=== PATIENT | male | born 2000 | race Caucasian/White ===

== ENCOUNTER 2023-05-21 14:38 | Emergency (ER) | payer BC ==
[2023-05-21 15:04] VITALS: TEMP 98.4; O2SAT 100
[2023-05-21 15:19] LABS: Absolute Neutrophil Ct (ANC) 3.24 x10^3/uL (1.4-6.9); BASOPHIL % 0.8 % (0.0-0.4); Basophil (Absolute #) 0.05 x10^3/uL (0-0.4); Eosinophil (Absolute #) 0.12 x10^3/uL (0-0.5); Hematocrit 46.2 % (42-50); Hemoglobin 15.4 g/dL (12.5-18.0); IMMATURE GRAN # 0.02 x10^3u/L (0.00-0.03); IMMATURE GRAN % 0.3 % (0.00-0.4); Lymphocyte (Absolute #) 2.14 x10^3/uL (1.0-4.6); Mean Corpuscular Hgb Concent. 33.3 g/dL (32-36); Mean Platelet Volume 10.5 fL (7.5-11.0); Monocyte (Absolute #) 0.54 x10^3/uL (0.0-1.3); Monocytes % 8.8 % (0.0-12.0); Neutrophil % 53.1 % (36.0-66.0); Platelet Count 268 x10^3/uL (150-450); Red Blood Count 5.31 x10^6/uL (4.1-5.6); Red Cell Distribution Width 12.3 % (11.5-14.0); White Blood Count 6.1 x10^3/uL (4.0-10.5)
[2023-05-21 15:34] LABS: ALBUMIN 4.6 g/dL (3.5-5.0); ALKALINE PHOSPHATASE 52 U/L (38-126); ANION GAP 13.7 MEQ/L (5-15); BLOOD UREA NITROGEN 14 mg/dL (9-20); CHLORIDE 104 mmol/L (98-107); Calcium 9.9 mg/dL (8.4-10.2); Carbon Dioxide 26 mmol/L (22-30); EST GLOMERULAR FILTRATION RATE > 60.0 ML/MIN; Glucose 116 mg/dL (74-106); MAGNESIUM 1.9 mg/dL (1.6-2.3); Potassium 4.2 mmol/L (3.5-5.1); SGOT/AST 37 U/L (17-59); SGPT/ALT 27 U/L (0-50); SODIUM 139 mmol/L (137-145); Total Protein 7.5 g/dL (6.3-8.2)
[2023-05-21 15:36] LABS: D-DIMER QUANTITATIVE < 0.19 mg/L (0.0-0.50); INR 0.94 (0.8-3.0); PROTIME 10.3 SECONDS (9.4-12.5); PTT 28.4 SECONDS (25.1-36.5)
--- NOTE | 2023-05-21 15:54 | ERPHSYRPT ---
- History of Present Illness Historian: patient, other (SO) Patient Subjective Stated Complaint: pt reports chest pain for approx 1.5 months now, states his s/s got worse today. he states that he feels a lot of chest pressure and sometimes he is short of breath. pt also reports unexplained weight gain and increased sweating. pt states sometimes when he wakes up in the morning he coughs up a lot of phlegm. pt reports history of pericarditis. Triage Nursing Assessment: pt is aox3, pt appears anxious, pupils perrl, afebrile, resps easy and non labored, cap refill < 3 seconds, pt radial pulses s evelyn and equal, pt is tachycardic, pt skin pink warm dry. no edema appreciated. Physician History: 22 yo WM w L alteral chest pain x 6wks. pain is 0/10 at present but has been up to a 7/10. it does not radiate, and nothing makes it better or worse. He denies N/V/diaphoresis but states that eh has been a little dyspneic. DM/HTN/smoking/hyperlipidemia are all denied. He had a h/o myocarditis in 2019. Timing/Duration: other (6 wks) Activities at Onset: rest Quality: aching, sharpness Location: other (L chest) Chest Pain Radiation: no radiation Severity of Pain-Max: moderate Severity of Pain-Current: none Modifying Factors: Improves With: nothing Associated Symptoms: denies symptoms, shortness of breath Nitro Today/Relief: no nitro taken today Aspirin Treatment Today: no aspirin today Hx Tetanus, Diphtheria Vaccination/Date Given: (UNK) Hx Influenza Vaccination/Date Given: No Hx Pneumococcal Vaccination/Date Given: No Immunizations Up to Date: Yes Travel Risk - International Travel Have you traveled outside of the country in past 3 weeks: No - Coronavirus Screening Are you exhibiting any of the following symptoms?: No Close contact with a COVID-19 positive Pt in past 14-21 Days: No - Vaccine Status Have you recieved a Covid-19 vaccination: No - Review of Systems Constitutional: No Symptoms Eyes: No Symptoms Ears, Nose, & Throat: No Symptoms Respiratory: No Symptoms Cardiac: Chest Pain Abdominal/Gastrointestinal: No Symptoms Genitourinary Symptoms: No Symptoms Musculoskeletal: No Symptoms Skin: No Symptoms Neurological: No Symptoms Psychological: No Symptoms Endocrine: No Symptoms Hematologic/Lymphatic: No Symptoms Immunological/Allergic: No Symptoms - Past Medical History Pertinent Past Medical History: Yes Other Medical History: TONYA/PERICARDITIS 2020 - Past Surgical History Past Surgical History: No - Social History Smoking Status: Never smoker Drug Use: none Patient Lives Alone: No - Nursing Vital Signs Nursing Vital Signs: Initial Vital Signs Temperature 98.4 F 05/21/23 14:40 Pulse Rate 114 H 05/21/23 14:40 Respiratory Rate 20 05/21/23 14:40 Blood Pressure 128/109 05/21/23 14:40 O2 Sat by Pulse Oximetry 100 05/21/23 14:40 Pain Scale Pain Intensity 0 Tachy/hypertensive - Physical Exam General Appearance: no apparent distress, anxiety Eye Exam: PERRL/EOMI, eyes nml inspection Ears, Nose, Throat Exam: normal ENT inspection, TMs normal, pharynx normal, moist mucous membranes Neck Exam: normal inspection, non-tender, supple, full range of motion, No meningismus, No mass, No Brudzinski, No Kernig's, No carotid bruit Respiratory Exam: normal breath sounds, lungs clear, airway intact, No chest tenderness, No respiratory distress Cardiovascular Exam: normal heart sounds, tachycardia, capillary refill <2 sec, No murmur Gastrointestinal/Abdomen Exam: soft, normal bowel sounds, No tenderness Back Exam: normal inspection, normal range of motion, No CVA tenderness, No vertebral tenderness Extremity Exam: normal inspection, normal range of motion, pelvis stable Neurologic Exam: alert, oriented x 3, cooperative, 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, normal mood/affect, nml cerebellar function, nml station & gait, sensation nml, No motor deficits, No sensory deficit Skin Exam: normal color, warm, dry, No rash Lymphatic Exam: No adenopathy SpO2 Interpretation: normal SpO2: 100 O2 Delivery: Room Air - Course EKG Interpreted by Me: RATE (Sinus tach/Rate 111/Normal QT-QTc/Non-specific ST changes) - Radiology Exams Chest X-ray Interpretation: Interpreted by me (NAD) Ordered Tests: Active Orders 24 hr Category Date Time Status Museum Docent STAT Care 05/21/23 14:56 Completed EKG-ER Only STAT Care 05/21/23 14:54 Completed IV Insertion STAT Care 05/21/23 14:56 Completed CHEST 1 VIEW (PORTABLE) Stat Exams 05/21/23 14:54 Taken CBC W DIFF Stat Lab 05/21/23 15:00 Completed CMP Stat Lab 05/21/23 15:00 Completed D-DIMER QUANTITATIVE Stat Lab 05/21/23 15:00 Completed MAGNESIUM Stat Lab 05/21/23 15:00 Completed PROTIME WITH INR Stat Lab 05/21/23 15:00 Completed PTT Stat Lab 05/21/23 15:00 Completed TROPONIN Q4H Lab 05/21/23 15:00 Completed Lab/Rad Data: Laboratory Result Diagrams 05/21/23 15:00 05/21/23 15:00 Laboratory Results 05/21/23 05/21/23 05/21/23 Range/Units 15:00 15:00 15:00 WBC (4.0-10.5) x10^3/uL RBC (4.1-5.6) x10^6/uL Hgb (12.5-18.0) g/dL Hct (42-50) % MCV (78-100) fL MCH (26-32) pg MCHC (32-36) g/dL RDW (11.5-14.0) % Plt Count (150-450) x10^3/uL MPV (7.5-11.0) fL Gran % (36.0-66.0) % Immature Gran % (Auto) (0.00-0.4) % Nucleat RBC Rel Count (0.00-0.1) % Eos # (Auto) (0-0.5) x10^3/uL Immature Gran # (Auto) (0.00-0.03) x10^3u/L Absolute Lymphs (auto) (1.0-4.6) x10^3/uL Absolute Monos (auto) (0.0-1.3) x10^3/uL Absolute Nucleated RBC (0.00-0.01) x10^3u/L Lymphocytes % (24.0-44.0) % Monocytes % (0.0-12.0) % Eosinophils % (0.00-5.0) % Basophils % (0.0-0.4) % Absolute Granulocytes (1.4-6.9) x10^3/uL Basophils # (0-0.4) x10^3/uL PT 10.3 (9.4-12.5) SECONDS INR 0.94 (0.8-3.0) APTT 28.4 (25.1-36.5) SECONDS D-Dimer < 0.19 (0.0-0.50) mg/L Sodium 139 (137-145) mmol/L Potassium 4.2 (3.5-5.1) mmol/L Chloride 104 (98-107) mmol/L Carbon Dioxide 26 (22-30) mmol/L Anion Gap 13.7 (5-15) MEQ/L BUN 14 (9-20) mg/dL Creatinine 0.70 (0.66-1.25) mg/dL Estimated GFR > 60.0 ML/MIN Glucose 116 H (74-106) mg/dL Calcium 9.9 (8.4-10.2) mg/dL Magnesium 1.9 (1.6-2.3) mg/dL Total Bilirubin 1.00 (0.2-1.3) mg/dL AST 37 (17-59) U/L ALT 27 (0-50) U/L Alkaline Phosphatase 52 (38-126) U/L Troponin I < 0.012 (0.000-0.034) ng/mL Serum Total Protein 7.5 (6.3-8.2) g/dL Albumin 4.6 (3.5-5.0) g/dL 05/21/23 Range/Units 15:00 WBC 6.1 (4.0-10.5) x10^3/uL RBC 5.31 (4.1-5.6) x10^6/uL Hgb 15.4 (12.5-18.0) g/dL Hct 46.2 (42-50) % MCV 87.0 (78-100) fL MCH 29.0 (26-32) pg MCHC 33.3 (32-36) g/dL RDW 12.3 (11.5-14.0) % Plt Count 268 (150-450) x10^3/uL MPV 10.5 (7.5-11.0) fL Gran % 53.1 (36.0-66.0) % Immature Gran % (Auto) 0.3 (0.00-0.4) % Nucleat RBC Rel Count 0.0 (0.00-0.1) % Eos # (Auto) 0.12 (0-0.5) x10^3/uL Immature Gran # (Auto) 0.02 (0.00-0.03) x10^3u/L Absolute Lymphs (auto) 2.14 (1.0-4.6) x10^3/uL Absolute Monos (auto) 0.54 (0.0-1.3) x10^3/uL Absolute Nucleated RBC 0.00 (0.00-0.01) x10^3u/L Lymphocytes % 35.0 (24.0-44.0) % Monocytes % 8.8 (0.0-12.0) % Eosinophils % 2.0 (0.00-5.0) % Basophils % 0.8 (0.0-0.4) % Absolute Granulocytes 3.24 (1.4-6.9) x10^3/uL Basophils # 0.05 (0-0.4) x10^3/uL PT (9.4-12.5) SECONDS INR (0.8-3.0) APTT (25.1-36.5) SECONDS D-Dimer (0.0-0.50) mg/L Sodium (137-145) mmol/L Potassium (3.5-5.1) mmol/L Chloride (98-107) mmol/L Carbon Dioxide (22-30) mmol/L Anion Gap (5-15) MEQ/L BUN (9-20) mg/dL Creatinine (0.66-1.25) mg/dL Estimated GFR ML/MIN Glucose (74-106) mg/dL Calcium (8.4-10.2) mg/dL Magnesium (1.6-2.3) mg/dL Total Bilirubin (0.2-1.3) mg/dL AST (17-59) U/L ALT (0-50) U/L Alkaline Phosphatase (38-126) U/L Troponin I (0.000-0.034) ng/mL Serum Total Protein (6.3-8.2) g/dL Albumin (3.5-5.0) g/dL - Progress Progress Note: 05/21/23 16:07 Nursing note and vital signs reviewed No food or housing insecurities noted Additional history per SO All lab results reviewed and shared w pt/SO CXR read in ER and result shared w pt/SO Heart Score 1 DD negative Pt wo any chest pain while in ER Counseled pt/family regarding: lab results, diagnosis, need for follow-up, rad results Medical Desision Making - Independent Historian Additional History obtained from: Spouse - Diagnostic Testing Diagnostic test were ordered, analyzed, and reviewed by me: Yes Radiological Interpretation: Interpreted by me - Risk of complications Low Risk: Low risk of morbidity from additional dx testing or treatment - Departure Departure Disposition: Home Clinical Impression: Chest pain Condition: Stable Critical Care Time: No Referrals: SANAM MOORE NP [Primary Care Provider] - Follow up/PCP as directed Instructions: Chest Pain (DC) Additional Instructions: Follow up with your family MD Return to ER for worsening pain or temperature greater than 100.5
[2023-05-21 16:27] VITALS: BP 128/98; PULSE 92; RESP 16
--- NOTE | 2023-05-21 20:54 | XRAY ---
Indication: Short of breath and chest pain. Comparison: None Portable apical lordotic chest demonstrates normal heart, lungs, and bony thorax.
== END 2023-05-21 16:25 | disposition home or self-care (01) ==
LOC: ED 14:38
DX: R07.9 Chest pain, unspecified (principal); Z28.310 Unvaccinated for COVID-19
CPT/HCPCS: 36000; 36415; 71045; 80053; 83735; 84484; 85025; 85379; 85610; 85730; 93005; 93041; 99284

== ENCOUNTER 2025-07-19 08:35 | Emergency (ER) | payer BC ==
[2025-07-19 08:51] VITALS: TEMP 97.8; O2SAT 97
--- NOTE | 2025-07-19 08:55 | ERPHSYRPT ---
- History of Present Illness Time Seen by Provider: 07/19/25 08:50 Historian: patient Exam Limitations: no limitations Patient Subjective Stated Complaint: patient came into ED had LAbs ran and covid and flu swab and was all negative Triage Nursing Assessment: patient had scope done 06/05 and left hip labrum muscle repaired, hes been on antibiotic sincef shortly after that, but he is still having horrible pains in his back and flank. patietn is alert and orientedx4, able to ambualte by self, skin warm dry and intact. incision area clean dry and healing. patient says this week he's been having some nausea as well. 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 He did have an infected postoperative incision midportion. The wound has been undergoing packing. Patient is no longer on antibiotics. In the last 3 to 4 days he has had nausea and intermittent fevers. The fevers reached as high as 102 F. In the last 2 days he is having bilateral flank pain and feels sweaty although he has not measured fever. Patient underwent viral swabs 2 to 3 days ago and they were negative per his report. He has not vomited. He has not had diarrhea. The patient did complete a course of Bactrim DS antibiotic. Timing/Duration: day(s) (4), worse Quality: sharpness, stabbing Severity of Pain-Max: moderate Severity of Pain-Current: moderate Modifying Factors: Improves With: nothing Associated Symptoms: diaphoresis, fever/chills, nausea Previous symptoms: recently seen Allergies/Adverse Reactions: No Known Drug Allergies Allergy (Verified 07/19/25 08:42) Home Medications: No Reportable Medications [No Reported Medications] 07/19/25 [History] Hx Tetanus, Diphtheria Vaccination/Date Given: Yes Hx Influenza Vaccination/Date Given: No Hx Pneumococcal Vaccination/Date Given: No Immunizations Up to Date: Yes Travel Risk - International Travel Have you traveled outside of the country in past 3 weeks: No - Emerging Infectious Disease Are you exhibiting symptoms associated with any current EIDs: No - Review of Systems Constitutional: No Symptoms Eyes: No Symptoms Ears, Nose, & Throat: No Symptoms Respiratory: No Symptoms Cardiac: No Symptoms Abdominal/Gastrointestinal: Nausea, No Abdominal Pain Genitourinary Symptoms: Flank Pain Musculoskeletal: Other (Status post left hip labial repair with midportion wound opened with packing) Skin: Other (See above musculoskeletal section. No obvious external wound drainage or malodor) Neurological: No Symptoms Psychological: No Symptoms Endocrine: No Symptoms Hematologic/Lymphatic: No Symptoms Immunological/Allergic: No Symptoms All Other Systems: Reviewed and Negative - Past Medical History Pertinent Past Medical History: Yes Neurological History: No Pertinent History ENT History: No Pertinent History Cardiac History: No Pertinent History Respiratory History: No Pertinent History Endocrine Medical History: No Pertinent History Musculoskeletal History: No Pertinent History GI Medical History: No Pertinent History History: No Pertinent History Psycho-Social History: No Pertinent History Male Reproductive Disorders: No Pertinent History 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 - Past Surgical History Past Surgical History: Yes Musculoskeletal: Orthopedic Surgery, Other - Social History Smoking Status: Never smoker Exposure to second hand smoke: No Drug Use: none - Social Determinants of Health Will the patient participate in the screening: Yes Do you worry about a steady place to live?: No Do you have any problems with any of the following?: No known problems In the past 12 months,have you had to go without utilities?: No Transportation Issues: No Has anyone in your support network made you feel unsafe?: No Have you or anyone in your house had to go w/o enough food: No - Nursing Vital Signs Nursing Vital Signs: Initial Vital Signs Temperature 97.7 F 07/19/25 08:35 Pulse Rate 92 H 07/19/25 08:35 Respiratory Rate 20 07/19/25 08:35 Blood Pressure 127/91 07/19/25 08:35 O2 Sat by Pulse Oximetry 99 07/19/25 08:35 Pain Scale Pain Intensity 6 - Physical Exam General Appearance: no apparent distress, alert, anxiety Eye Exam: PERRL/EOMI Ears, Nose, Throat Exam: normal ENT inspection, moist mucous membranes Neck Exam: normal inspection, non-tender, supple, full range of motion Respiratory Exam: airway intact, No chest tenderness, No respiratory distress Gastrointestinal/Abdomen Exam: soft, normal bowel sounds, tenderness Rectal Exam: not done Extremity Exam: other (Status post left hip labial repair with axially oriented postoperative decision. Midportion wound open with packing present. 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, nml cerebellar function, nml station & gait, sensation nml Skin Exam: normal color, warm, dry Lymphatic Exam: No adenopathy SpO2 Interpretation: normal SpO2: 97 O2 Delivery: Room Air - Course Nursing assessment & vital signs reviewed: Yes Ordered Tests: Active Orders 24 hr Category Date Time Status IV Insertion STAT Care 07/19/25 08:58 Active ABDOMEN AND PELVIS W/0 CONTRAS [CT] Stat Exams 07/19/25 08:58 Completed LOWER EXTREMITY WO CONTRAST [CT] Stat Exams 07/19/25 09:00 Completed BLOOD CULTURE Stat Lab 07/19/25 09:52 Received CBC W DIFF Stat Lab 07/19/25 08:58 Completed CMP Stat Lab 07/19/25 08:58 Completed LIPASE Stat Lab 07/19/25 08:58 Completed Lactic Acid Stat Lab 07/19/25 09:23 Completed MONO SCREEN Stat Lab 07/19/25 08:58 Completed PROCALCITONIN Stat Lab 07/19/25 09:20 Completed UA W/RFX UR CULTURE Stat Lab 07/19/25 08:58 Completed Medication Summary Discontinued Medications Generic Name Dose Route Start Last Admin Trade Name Freq PRN Reason Stop Dose Admin Sodium Chloride 1,000 mls @ 999 mls/hr 07/19/25 08:58 07/19/25 10:15 Sodium Chloride 0.9% 1000 Ml IV 07/19/25 09:58 Infused .Q1H1M STA Infusion Sodium Chloride Confirm 07/19/25 09:15 Sodium Chloride 0.9% 1000 Ml Administered 07/19/25 09:16 Dose 1,000 mls @ ud .ROUTE .STK-MED ONE Ondansetron HCl 4 mg 07/19/25 08:58 07/19/25 09:16 Ondansetron Hcl 4 Mg/2 Ml Vial IV 07/19/25 08:59 4 mg STAT ONE Administration Ondansetron HCl Confirm 07/19/25 09:15 Ondansetron Hcl 4 Mg/2 Ml Vial Administered 07/19/25 09:16 Dose 4 mg .ROUTE .STK-MED ONE Lab/Rad Data: Laboratory Result Diagrams 07/19/25 08:58 07/19/25 08:58 Laboratory Results 07/19/25 07/19/25 07/19/25 Range/Units 09:23 09:20 08:58 WBC (4.23-9.07) x10^3/uL RBC (4.63-6.08) x10^6/uL Hgb (13.7-17.5) g/dL Hct (40.1-51.0) % MCV (79.0-92.2) fL MCH (25.7-32.2) pg MCHC (32.3-36.5) g/dL RDW (11.6-14.4) % Plt Count (163-337) x10^3/uL MPV (9.4-12.4) fL Gran % (34.0-67.9) % Immature Gran % (Auto) (0.001-0.429) % Nucleat RBC Rel Count (0.00-0.2) % Eos # (Auto) (0.04-0.54) x10^3/uL Immature Gran # (Auto) (0.001-0.031) x10^3u/L Absolute Lymphs (auto) (1.32-3.57) x10^3/uL Absolute Monos (auto) (0.30-0.82) x10^3/uL Absolute Nucleated RBC (0.00-0.012) x10^3u/L Lymphocytes % (21.8-53.1) % Monocytes % (5.3-12.2) % Eosinophils % (0.8-7.0) % Basophils % (0.2-1.2) % Absolute Granulocytes (1.78-5.38) x10^3/uL Basophils # (0.01-0.08) x10^3/uL Sodium (135-145) mmol/L Potassium (3.5-5.1) mmol/L Chloride (98-107) mmol/L Carbon Dioxide (22-30) mmol/L Anion Gap (5-15) MEQ/L BUN (9-20) mg/dL Creatinine (0.66-1.25) mg/dL Estimated GFR ML/MIN Glucose (74-106) mg/dL Lactic Acid 1.0 (0.4-2.0) Calcium (8.4-10.2) mg/dL Total Bilirubin (0.2-1.3) mg/dL AST (17-59) U/L ALT (0-50) U/L Alkaline Phosphatase (38-126) U/L Serum Total Protein (6.3-8.2) g/dL Albumin (3.5-5.0) g/dL Lipase (23-300) U/L Procalcitonin 0.498 H (0.030-0.080) ng/mL Urine Color (Yellow) Urine Appearance (Clear) Urine pH (4.6-8.0) Ur Specific [place] (1.005-1.030) Urine Protein (Negative) Urine Glucose (UA) (Negative) mg/dL Urine Ketones (Negative) Urine Blood (Negative) Urine Nitrite (Negative) Urine Bilirubin (Negative) Urine Urobilinogen (0.2) mg/dL Ur Leukocyte Esterase (Negative) U Hyaline Cast (Auto) (0-2) /LPF Urine Microscopic RBC (0-5) /HPF Urine Microscopic WBC (0-5) /HPF Ur Epithelial Cells (None Seen) /HPF Urine Bacteria (None Seen) /HPF Urine Culture Reflexed (NO) Monoscreen NEGATIVE (NEGATIVE) 07/19/25 07/19/25 07/19/25 Range/Units 08:58 08:58 08:58 WBC 3.8 L (4.23-9.07) x10^3/uL RBC 4.96 (4.63-6.08) x10^6/uL Hgb 14.4 (13.7-17.5) g/dL Hct 42.8 (40.1-51.0) % MCV 86.3 (79.0-92.2) fL MCH 29.0 (25.7-32.2) pg MCHC 33.6 (32.3-36.5) g/dL RDW 12.3 (11.6-14.4) % Plt Count 237 (163-337) x10^3/uL MPV 9.6 (9.4-12.4) fL Gran % 55.6 (34.0-67.9) % Immature Gran % (Auto) 0.5 H (0.001-0.429) % Nucleat RBC Rel Count 0.0 (0.00-0.2) % Eos # (Auto) 0.27 (0.04-0.54) x10^3/uL Immature Gran # (Auto) 0.02 (0.001-0.031) x10^3u/L Absolute Lymphs (auto) 0.81 L (1.32-3.57) x10^3/uL Absolute Monos (auto) 0.53 (0.30-0.82) x10^3/uL Absolute Nucleated RBC 0.00 (0.00-0.012) x10^3u/L Lymphocytes % 21.3 L (21.8-53.1) % Monocytes % 13.9 H (5.3-12.2) % Eosinophils % 7.1 H (0.8-7.0) % Basophils % 1.6 H (0.2-1.2) % Absolute Granulocytes 2.12 (1.78-5.38) x10^3/uL Basophils # 0.06 (0.01-0.08) x10^3/uL Sodium 137 (135-145) mmol/L Potassium 4.2 (3.5-5.1) mmol/L Chloride 102 (98-107) mmol/L Carbon Dioxide 29 (22-30) mmol/L Anion Gap 11.1 (5-15) MEQ/L BUN 8 L (9-20) mg/dL Creatinine 0.58 L (0.66-1.25) mg/dL Estimated GFR 137.1 ML/MIN Glucose 107 H (74-106) mg/dL Lactic Acid (0.4-2.0) Calcium 9.4 (8.4-10.2) mg/dL Total Bilirubin 2.10 H (0.2-1.3) mg/dL AST 972 H (17-59) U/L ALT 1319 H (0-50) U/L Alkaline Phosphatase 213 H (38-126) U/L Serum Total Protein 7.2 (6.3-8.2) g/dL Albumin 4.4 (3.5-5.0) g/dL Lipase 85 (23-300) U/L Procalcitonin (0.030-0.080) ng/mL Urine Color Dark Yellow (Yellow) Urine Appearance Clear (Clear) Urine pH 7.0 (4.6-8.0) Ur Specific [place] 1.015 (1.005-1.030) Urine Protein Negative (Negative) Urine Glucose (UA) Negative (Negative) mg/dL Urine Ketones Negative (Negative) Urine Blood Negative (Negative) Urine Nitrite Negative (Negative) Urine Bilirubin Negative (Negative) Urine Urobilinogen 2.0 A (0.2) mg/dL Ur Leukocyte Esterase Negative (Negative) U Hyaline Cast (Auto) NONE SEEN (0-2) /LPF Urine Microscopic RBC 0-2 (0-5) /HPF Urine Microscopic WBC 0-2 (0-5) /HPF Ur Epithelial Cells None Seen (None Seen) /HPF Urine Bacteria None Seen (None Seen) /HPF Urine Culture Reflexed NO (NO) Monoscreen (NEGATIVE) - Progress Progress: unchanged, re-examined Progress Note: 07/19/25 09:24 My medical decision making and the assignment of moderate complexity of this patient's medical issue today is based on review of the patient's past medical history, reviewed patient's medication list, review of the patient's drug allergy list, history present does not physical findings on examination. The workup in this patient includes placement of intravenous line, infusion of normal saline solution, infusion of Zofran, CBC, CMP, lactic acid level, procalcitonin level, urinalysis, blood culture, CT scan of the abdomen pelvis without contrast, CT scan left hip without contrast. Differential diagnosis includes but is not limited to pyelonephritis, urinary tract infection, left hip postoperative fluid collection/abscess 07/19/25 11:10 I interpreted the patient's laboratory data results. Based on the laboratory data results, the patient has elevated liver function test. I ordered acute hepatitis panel. I also noticed in his differential of the white blood cells that there is elevated monocytes and I ordered mononucleosis test. The remainder of the laboratory data workup does not show anything acute or emergent. The following CT scans were both performed without contrast and were interpreted by the radiologist. The impressions are as follows: CT scan of the abdomen pelvis without contrast shows a normal CT scan of the abdomen pelvis without contrast exam. CT scan of the lower extremity (left hip) shows a normal CT scan of the left hip without contrast exam. 07/19/25 12:13 I spoke with both the patient and his spouse regarding the laboratory and radiographic study results. Together, we opted to hold off on providing the patient with any antibiotics solely based on an elevated procalcitonin. Patient is to follow-up with his primary care provider today, 07/19/2025, to make arrangements for follow-up appointment on 07/22/2025 Counseled pt/family regarding: lab results, diagnosis, need for follow-up, rad results Medical Desision Making - Independent Historian Additional History obtained from: Spouse - Diagnostic Testing Diagnostic test were ordered, analyzed, and reviewed by me: Yes Radiological Interpretation: Reviewed by me, Teleradiologist Report - Risk of complications Low Risk: Low risk of morbidity from additional dx testing or treatment - Departure Departure Disposition: Home Clinical Impression: Arthralgia, Myalgia, Elevated liver function tests, Bilateral flank pain Condition: Stable Critical Care Time: No Referrals: SANAM MOORE NP [Primary Care Provider, [facility]] - Follow up/PCP as directed Additional Instructions: Drink plenty of fluids. You may use Tylenol 650 mg orally every 6 hours, alternating with ibuprofen 600 mg every 6 hours with food for fever control. Return to the emergency department if symptoms worsen over the weekend. Call your primary care provider today, 07/19/2025, to make arrangements for follow-up appointment to be seen on 07/22/2025 to discuss the results of your hepatitis panel and arrange for repeat liver function test and possible referral to infectious disease specialist if indicated.
[2025-07-19] MEDS ORDERED: Zofran 4 MG/2 ML VIAL ONE (09:15)
[2025-07-19] MEDS: Zofran 4 MG/2 ML VIAL IV ONE (09:16)
[2025-07-19 09:30] LABS: BASOPHIL % 1.6 % (0.2-1.2); Basophil (Absolute #) 0.06 x10^3/uL (0.01-0.08); Eosinophil (Absolute #) 0.27 x10^3/uL (0.04-0.54); Hematocrit 42.8 % (40.1-51.0); Hemoglobin 14.4 g/dL (13.7-17.5); IMMATURE GRAN # 0.02 x10^3u/L (0.001-0.031); IMMATURE GRAN % 0.5 % (0.001-0.429); Lymphocyte (Absolute #) 0.81 x10^3/uL (1.32-3.57); Mean Corpuscular Hemoglobin 29.0 pg (25.7-32.2); Mean Corpuscular Hgb Concent. 33.6 g/dL (32.3-36.5); Monocyte (Absolute #) 0.53 x10^3/uL (0.30-0.82); NUCLEATED RBC # 0.00 x10^3u/L (0.00-0.012); NUCLEATED RBC % 0.0 % (0.00-0.2); Platelet Count 237 x10^3/uL (163-337); Red Blood Count 4.96 x10^6/uL (4.63-6.08); White Blood Count 3.8 x10^3/uL (4.23-9.07)
[2025-07-19 09:34] LABS: Glucose, Urine Negative (Negative); Protein,Urine Dip Negative (Negative); RBC 0-2 /HPF (0-5); WBC 0-2 /HPF (0-5)
[2025-07-19 09:40] LABS: Calcium 9.4 mg/dL (8.4-10.2); Carbon Dioxide 29.0 mmol/L (22-30); Creatinine 1 0.58 mg/dL (0.66-1.25); EST GLOMERULAR FILTRATION RATE 137.1 ML/MIN; Glucose 107.0 mg/dL (74-106); Potassium 4.2 mmol/L (3.5-5.1); Total Protein 7.2 g/dL (6.3-8.2)
[2025-07-19 09:53] LABS: SGOT/AST 972.0 U/L (17-59); SGPT/ALT 1319.0 U/L (0-50)
--- NOTE | 2025-07-19 10:58 | XRAY ---
Indication: Bilateral flank pain. Fever. Multiple contiguous axial images obtained through the abdomen and pelvis without contrast using renal stone protocol. Comparison: None Lung bases clear. Heart not enlarged. No renal calculus or evidence for obstructive uropathy in either system. Noncontrasted stomach and bowel loops appear nonobstructed with normal appendix. Mild scattered colonic fecal debris in right hemicolon. No free fluid/air. Remaining liver, gallbladder, pancreas, spleen, adrenal glands, kidneys, ureters, bladder, and aorta are unremarkable for noncontrast exam. Osseous structures including hips are normal. Impression: Normal CT abdomen/pelvis without contrast exam.
--- NOTE | 2025-07-19 11:02 | XRAY ---
Indication: Postop fever. Status post left labial repair. Normal CT abdomen/pelvis without contrast exam. Multiple contiguous axial images obtained through left hip without contrast. Sagittal and coronal reformatted images obtained. Comparison: None Left hip demonstrates normal bones and articulation. Lateral thigh demonstrates minimal cutaneous/subcutaneous postoperative changes without focal solid/cystic mass or soft tissue emphysema. No pathologic lymphadenopathy. Impression: Normal CT left hip without contrast exam.
[2025-07-19 12:22] VITALS: BP 109/80; PULSE 75; RESP 19
== END 2025-07-19 12:28 | disposition home or self-care (01) ==
LOC: ED 08:35
DX: M25.50 Pain in unspecified joint (principal); M79.10 Myalgia, unspecified site; R94.5 Abnormal results of liver function studies; R10.A3 Flank pain, bilateral